=== PATIENT | male | born 1950 | race Caucasian/White ===

== ENCOUNTER 2016-11-16 07:28 | Outpatient (CLI) | payer MEDICARE ==
[~2016-11-16] VITALS: Ht 170.2 cm; Wt 95.9 kg
--- NOTE | ~2016-11-16 | HEMODYNAMI ---
PATIENT:KRISS HORN MEDICAL RECORD: [id number] : 50 LOCATION:[facility] ADMISSION DATE: 11/16/16 Generatedon:11/16/20169:45 Patient name: KRISS HORN Patient #: [id number] SSN: : 1950 Date of study: 11/16/2016 Page: Of Hemodynamic Procedure Report Patient Data Patient Demographics Procedure consent was obtained First Name: KRISS Gender: Male Last Name: KORY : 1950 Middle Initial: A Age: 66 year(s) Patient #: [id number] Race: Additional ID: [id number] Contact details [address]: [address] [place] [address] [facility] [place] [facility] Zip code: [address] Past Medical History Allergies Allergen Reaction Date Comments Reported Aspirin 04/25/2015 Aspirin 11/16/2016 Admission Admission Data Admission Date: 11/16/2016 Admission Time: 7:28 Height (in.): 67 BSA: 2.07 (m2) Height (cm.): 170.18 BMI: 33.05 (kg/m2) Weight (lbs.): 211 Weight (kg.): 95.71 Lab Results Lab Result Date: 11/16/2016 Lab Result Time: 0:00 Biochemistry Name Units Result Min Max Creatinine mg/dl 1 --(--*-)-- 0.6 1.3 CBC Name Units Result Min Max Hemoglobin g/dl 16.6 --(---*)-- 13.5 17.5 Procedure Procedure Types Cath Procedure Diagnostic Procedure LHC LHC w/Coronaries Miscellaneous Procedures Moderate Sedation up to 30 minutes Procedure Description Procedure Date Procedure Date: 11/16/2016 Procedure Start Time: 9:22 Procedure End Time: 9:45 Procedure Staff Name Function Champ Quintana MD Performing Physician Francisco Husain RN Nurse Bina Escalante RT Monitor Maura Macdonald RT Scrub Procedure Data Cath Procedure Fluoroscopy Diagnostic fluoroscopy Total fluoroscopy Time: 7.9 time: 7.9 min min Diagnostic fluoroscopy Total fluoroscopy dose: dose: 1339 mGy 1339 mGy Contrast Material Contrast Material Type Amount (ml) Isovue 300 61 Entry Location Entry Primary Successful Side Size Upsize Upsize Entry Closure Velasco ccessful Closure Location (Fr) 1 (Fr) 2 (Fr) Remarks Device Remarks Femoral Right 6 Fr Mechanical artery Short Compression Estimated blood loss: 10 ml Diagnostic catheters Device Type Used For End Catheter Placement Diagnostic Terumo 5Fr LV Angiography [place] 110cm catheter Diagnostic Terumo 5Fr Left Coronary [place] 110cm catheter Angiography Diagnostic Terumo 5Fr Right Coronary [place] 110cm catheter Angiography Procedure Complications No complications Procedure Medications Medication Administration Route Dosage Oxygen NC 2 l/min Heparin Flush Bag added to field 2 bags (1000units/500ml NS) 0.9% NaCl I.V. 100 ml/hr Radial Cocktail added to field 1 syringe (Verapomil 2mg/Nitro 400mcg/Heparin 1500units) Fentanyl I.V. 50 mcg Versed I.V. 1 mg Fentanyl I.V. 50 mcg Versed I.V. 1 mg Fentanyl I.V. 50 mcg Radial Cocktail I.A. 1 syringe (Verapomil 2mg/Nitro 400mcg/Heparin 1500units) Heparin Bolus I.V. 4000 units Hemodynamics Rest BSA: 2.07 (m2) HGB: 16.6 (g/dl) O2 Consumption: Estimated: 231.87 (ml/min) O2 Co nsumption indexed: Estimated:112.01 (ml/min/m) Heart Rate: 58 (bpm) Snapshots Pre Cath Intra NCS Post Cath Vital Signs Time Heart Resp SPO2 NIBP (mmHg) Rhythm Pain Sedation Rate (ipm) (%) Status Level (bpm) 9:05:15 58 18 95 132/78(108) NSR 0 (11) 10(A) , No pain 9:09:33 58 18 94 129/67(112) NSR 0 (11) 10(A) , No pain 9:14:23 56 17 96 141/86(99) NSR 0 (11) 10(A) , No pain 9:18:40 57 17 97 127/81(103) NSR 0 (11) 9(A) , No pain 9:22:53 57 18 94 113/79(97) NSR 0 (11) 9(A) , No pain 9:27:07 60 17 94 109/62(87) NSR 0 (11) 9(A) , No pain 9:31:19 56 19 94 109/63(83) NSR 0 (11) 9(A) , No pain 9:35:29 57 19 95 111/68(91) NSR 0 (11) 9(A) , No pain 9:39:41 56 18 95 100/63(77) NSR 0 (11) 9(A) , No pain 9:41:09 55 10 96 106/55(85) NSR 0 (11) 9(A) , No pain Medications Time Medication Route Dose Verified Delivered Reason Notes Effectiveness by by 9:13:18 Oxygen NC 2 l/min Francisco Singh Per physician Rodrigue Husain RN RN 9:13:27 Heparin Flush added 2 bags Francisco Sevillay used for Bag to Rodrigue Husain RN procedure (1000units/500ml field RN NS) 9:13:38 0.9% NaCl I.V. 100 Francisco Singh Per physician ml/hr Rodrigue Husain RN RN 9:13:46 Radial Cocktail added 1 Francisco Francisco used for (Verapomil to syringe Rodrigue Husain RN procedure 2mg/Nitro RN 400mcg/Heparin 1500units) 9:14:52 Fentanyl I.V. 50 mcg Francisco Francisco for sedation Rodrigue Husain RN RN 9:14:59 Versed I.V. 1 mg Francisco Francisco for sedation Rodrigue Husain RN RN 9:17:49 Fentanyl I.V. 50 mcg Francisco Francisco for sedation Rodrigue Husain RN RN 9:17:52 Versed I.V. 1 mg Francisco Francisco for sedation Rodrigue Husain RN RN 9:19:24 Fentanyl I.V. 50 mcg Francisco Francisco for sedation Rodrigue Husain RN RN 9:24:00 Radial Cocktail I.A. 1 Francisco Longrey for (Verapomil syringe Rodrigue grande 2mg/Nitro RN 400mcg/Heparin 1500units) 9:32:15 Heparin Bolus I.V. 4000 Francisco Francisco for units Rodrigue Husain RN anticoagulation window draper Log Time Note 8:40:56 Francisco Husain RN sent for patient. Start room use. 8:41:02 Time tracking: Regular hours 8:41:06 Plan of Care:Hemodynamics will remain stable., Cardiac rhythm will remain stable., Comfort level will be maintained., Respiratory function will remain adequate., Patient/ family verbilizes understanding of procedure., Procedure tolerated without complication., Recovers from procedure without complications.. 8:45:55 Patient Height : 170.18 cm 8:45:57 Patient Weight : 95.71 kg 8:58:02 Patient received from Pre/Post Procedure Room to CCL 2 Alert and oriented. Tansferred to table in Supine position. 8:58:03 Warm blankets applied, and caleb hugger turned on for patient comfort. 8:58:03 Correct patient and procedure confirmed by team. 8:58:04 Signed procedure consent form obtained from patient. 8:58:05 ECG and BP/O2 sat monitors applied to patient. 8:58:06 Full Disclosure recording started 9:04:09 Vital chart was started 9:08:21 Baseline sample Acquired. 9:08:38 Rhythm: sinus rhythm 9:08:46 H&P Date Dictated: 11/13/2016 Within 30 days and on chart., H&P Addendum completed by physician on day of procedure. (MUST COMPLETE FOR ALL OUTPATIENTS). 9:08:47 Pre-procedure instructions explained to patient. 9:08:47 Pre-op teaching completed and patient verbalized understanding. 9:08:48 Family in waiting room. 9:08:50 Patient NPO since Midnight. 9:08:57 Patient allergic to Aspirin 9:08:59 Is the patient allergic to Iodine/contrast media? No. 9:09:01 Is patient on blood thinner?Yes 9:09:08 ACC The patient was administered the following blood thiners within the last 24 hours: ACCPlavix 9:09:17 Patient diabetic? Yes. 9:09:26 If diabetic: On Metformin? No 9:09:33 Previous problem with sedation/anesthesia? No ? 9:09:34 Snore? Yes 9:09:35 Sleep apnea? No 9:09:36 Deviated septum? No 9:09:37 Opens mouth fully? Yes 9:09:37 Sticks out tongue? Yes 9:09:39 Airway obstruction? No ? 9:09:42 Dentures? Yes out 9:09:45 Pre procedure: right dorsailis pedis pulse 2+ Normal; easily identifiable; not easily obliterated 9:09:46 Modified Gustavo's test Ulnar < 7 seconds 9:09:48 Patient pain scale 0/10 ?. 9:09:52 IV patent on arrival in left hand with 0.9% NaCl at O. 9:10:09 Lab Result : Hemoglobin 16.6 g/dl 9:10:09 Lab Result : Creatinine 1 mg/dl 9:10:13 Lab results completed and on chart. 9:10:16 Right Radial & Right Groin area was prepped with chlora-prep and draped in sterile fashion 9:10:17 Alarms reviewed by R. N. 9:10:18 Sharps counted by scrub and verified by R.N. 9:10:22 Use device set Radial Dx 9:10:23 Acist Syringe opened to sterile field. 9:10:23 Medline Cath Pack opened to sterile field. 9:10:24 Bag Decanter opened to sterile field. 9:10:24 Terumo 6Fr Slender Glidesheath opened to sterile field. 9:10:25 St [place] 260cm J .035 wire opened to sterile field. 9:10:25 Acist Hand Control opened to sterile field. 9:10:26 Acist Manifold opened to sterile field. 9:10:26 Tegaderm 4 x 4 opened to sterile field. 9:10:27 MBrace Wrist Support opened to sterile field. 9:13:18 Oxygen 2 l/min NC was administered by Francisco Husain RN; Per physician; 9:13:27 Heparin Flush Bag (1000units/500ml NS) 2 bags added to field was administered by Francisco Husain RN; used for procedure; 9:13:38 0.9% NaCl 100 ml/hr I.V. was administered by Francisco Husain RN; Per physician; 9:13:46 Radial Cocktail (Verapomil 2mg/Nitro 400mcg/Heparin 1500units) 1 syringe added to field was administered by Francisco Husain RN; used for procedure; 9:14:27 Final Timeout: patient, procedure, and site verified with staff and physician. All members of the team are in agreement. 9:14:31 Right Radial site verified by team. 9:14:33 Physical assessment completed. ASA score P 2 - A patient with mild systemic disease as per Champ Quintana MD. 9:14:36 Sedation plan: IV Moderate Sedation Versed, Fentanyl 9:14:52 Fentanyl 50 mcg I.V. was administered by Francisco Husain RN; for sedation; 9:14:59 Versed 1 mg I.V. was administered by Francisco Husain RN; for sedation; 9:17:49 Fentanyl 50 mcg I.V. was administered by Francisco Husain RN; for sedation; 9:17:52 Versed 1 mg I.V. was administered by Francisco Husain RN; for sedation; 9:19:24 Fentanyl 50 mcg I.V. was administered by Francisco Husain RN; for sedation; 9:22:04 Procedure started. 9:22:20 Zero performed for pressure channel P1 9:22:24 Zero performed for pressure channel P1 9:22:58 Local anesthetic to right radial artery with Lidocaine 2% by Champ Quintana MD.INITIAL ACCESS ONLY 9:23:41 A 6 Fr Short sheath was inserted into the Right Femoral artery 9:24:00 Radial Cocktail (Verapomil 2mg/Nitro 400mcg/Heparin 1500units) 1 syringe I.A. was administered by Champ Quintana MD; for vasodilation; 9:24:11 A Diagnostic Terumo 5Fr [place] 110cm catheter was advanced over the wire and used for LV Angiography. 9:25:24 Angled glide wire advanced. 9:25:41 Terumo ANGLE 260cm glide wire opened to sterile field. 9:27:38 LV gram done using HOOVER 9:27:47 EF : 45 % 9:27:54 Injector settings: Ml/sec: 5, Volume: 15, 9:28:10 A Diagnostic Terumo 5Fr [place] 110cm catheter was advanced over the wire and used for Left Coronary Angiography. 9:29:35 A Diagnostic Terumo 5Fr [place] 110cm catheter was advanced over the wire and used for Right Coronary Angiography. 9:29:36 Catheter removed. 9:30:07 Merit BasixCompak Inflation Kit opened to sterile field. 9:30:07 [place] Sci Choice PT Extra Support J 300cm .014 gu opened to sterile field. 9:30:16 Cordis 6FR XBLAD 3.5 guide catheter opened to sterile field. 9:30:57 6 Fr XBLAD 3.5 guide catheter was inserted over the wire 9:32:15 Heparin Bolus 4000 units I.V. was administered by Francisco Husain RN; for anticoagulation; 9:32:22 Choice PT ES wire advanced. 9:34:31 Knutson Fielder XT J 300cm 0.014 guide wire opened to sterile field. 9:34:55 Wire removed. damaged. 9:35:02 Fielder wire advanced. 9:37:33 The [place] K94 Discoveries [place] 1.5 X 15 balloon was advanced and then removed because of failure to cross lesion 9:37:36 Balloon removed over the wire. 9:37:36 Wire removed. 9:37:38 Guide catheter removed. 9:38:39 Sheath removed intact; hemostasis achieved with Mechanical Compression to the Right Femoral artery. 9:38:41 Procedure ended.(Physican Out) 9:38:54 Fluoroscopy time 07.90 minutes. 9:38:59 Flurop Dose total: 1339 9:38:59 Fluoroscopy dose: 1339 mGy 9:39:05 Contrast amount:Isovue 300 61ml. 9:39:07 Sharps counted by scrub and verified by R.N. 9:39:09 TR band inflated with 10cc of air. 9:39:10 Insertion/operative site no bleeding no hematoma. 9:39:15 Post right radial artery:stable, clean and dry 9:40:40 Prelude SYNC Large TR Band opened to sterile field. 9:40:47 Post Procedure Pulses reassessed and unchanged 9:40:49 Post-procedure physical assessment completed. ASA score P 2 - A patient with mild systemic disease as per Champ Quintana MD. 9:40:52 Post procedure rhythm: unchanged. 9:40:54 Estimated blood loss: 10 ml 9:40:55 Post procedure instruction explained to patient.Patient verbalizes understanding. 9:40:55 Patient needs reinforcement of post procedure teaching. 9:42:10 Procedure type changed to Cath procedure, Diagnostic procedure, LHC, LHC w/Coronaries, Miscellaneous Procedures, Moderate Sedation up to 30 minutes 9:44:15 Procedure and supply charges have been captured, reviewed, submitted and are correct. 9:44:18 Procedure Complication : No complications 9:44:20 See physician's report for complete and final results. 9:44:58 Vital chart was stopped 9:45:00 Report given to Pre/Post Procedure Room. 9:45:02 Patient transfered to Pre/Post Procedure Room with Stretcher. 9:45:04 Procedure ended. 9:45:04 Full Disclosure recording stopped 9:45:07 End room use (Document Last) Intervention Summary Intervention Notes Time ActionType Lesion and Equipment Action# Pressure Duration Attributes Used 9:37:33 Discard [place] Balloon Sci [place] 1.5 X 15 balloon Device Usage Item Name Manufacture Quantity Catalog Number Hospital Part Current Mini mal Lot# / Charge Number Stock Stock Serial# Code Acist Acist 1 86024 712127 459812 [id number] 20 Syringe Medical Systems Inc Medline Cardinal 1 [id number] 831823 33737 817286 5 Cath Pack Health Bag Microtek 1 2002S 255422 91834 003456 5 Decanter Medical Inc. Terumo 6Fr Terumo 1 [id number] 930713 017149 989480 [address] St Tor[place] 1 726580 132415 022181 569693 30 260cm J .035 wire Acist Hand Acist 1 73652 397685 123518 572672 5 Control Medical Systems Inc Acist Acist 1 89350 537282 001636 289389 5 Manifold Medical Systems Inc Tegaderm 4 3M 1 1626W 238477 199536 588257 5 x 4 MBrace Advanced 1 140-0250-00 679802 51970 151549 5 Wrist Vascular Support Dynamics Diagnostic Terumo 1 32-9931 204949 586565 849655 5 Terumo 5Fr [place] 110cm catheter Terumo Terumo 1 [id number] 986635 306093 028919 5 ANGLE 260cm glide wire Merit Merit 1 [id number] 199938 875867 099692 15 BasixCompak Medical Inflation Kit [place] Sci [place] 1 [id number] 418493 020215 630894 5 Choice PT Scientific Extra Support J 300cm .014 gu Cordis 6FR Cardinal 1 [id number] 997477 723237 853313 10 XBLAD 3.5 Health guide catheter Knutson Knutson 1 [id number] 894191 285563 608138 5 Fielder XT Vascular J 300cm 0.014 guide wire [place] Sci [place] 1 [id number] 283615 422281 940939 1 [id number] Prosper[employer]. 1.5 X 15 balloon Prelude Unknown 1 0 0 SYNC Large TR Band Signature Audit [place] Stage Time Signature Unsigned Intra-Procedure 11/16/2016 Bina 9:45:18 AM Counts RT(R) Signatures Monitor : Bina Signature : Counts RT Date : Time : [place] [id number] [place] [id number]
[~2016-11-16 07:28] MED LIST: BETAPACE 80 MG80 MG PO; COZAAR50 MG PO; METOPROLOL TART50 MG PO; NORCO 7.5/325 T1 TA1 PO; PLAVIX75 MG PO; PROTONIX40 MG PO; VOLTAREN100 GM TOPICAL
[2016-11-16 08:01] VITALS: BP 159/85; Ht 170.2 cm; Wt 95.9 kg
[2016-11-16 08:23] LABS: BASOPHILS 0.5 % (0-2); EOSINOPHILS 4.2 % (0-7); HEMATOCRIT 48.6 % (42.0-54.0); HEMOGLOBIN 16.6 g/dL (13.5-17.5); IMMATURE GRANULOCYTES 0.2 % (0-5); MCH 31.4 pg (26.0-34.0); MCHC 34.2 g/dL (31.0-37.0); MONOCYTES 9.6 % (2-11); NEUTROPHILS 41.5 % (40-80); PLATELET COUNT 121 10x3/uL (130-400); RBC 5.28 10x6/uL (4.20-6.10); RDW 14.8 % (11.5-14.5)
[2016-11-16 08:30] LABS: CALC OSMOLALITY 280 mosm/kg (275-300); CALCIUM 9.9 mg/dL (8.5-10.1); CARBON DIOXIDE 26.2 mmol/L (21.0-32.0); CHLORIDE - SERUM 106 mmol/L (98-107); GLUCOSE 130 mg/dL (74-106); POTASSIUM - SERUM 4.6 mmol/L (3.5-5.1); SODIUM 139 mmol/L (136-145); UREA NITROGEN 16 mg/dL (7-18); eGFR NON AFRICAN AMERICAN 79 mL/min (90-120)
--- NOTE | 2016-11-16 10:15 | NUR ---
2L NC, NO RESP DISTRESS NOTED. RIGHT WRIST TR BAND IN PLACE, NO BLEEDING OR HEMATOMA NOTED. SB @ 56 ON MONITOR. NO C/O CHEST PAIN OR NAUSEA. VSS.
--- NOTE | 2016-11-16 10:45 | NUR ---
SANDWICH TRAY AND DRINK GIVEN. NO C/O NAUSEA. 2L NC, NO RESP DISTRESSS NOTED. RIGHT WRIST TR BAND IN PLACE, NO BLEEDING OR HEMATOMA NOTED. VSS. NO C/O CHEST PAIN. FAMILY AT BEDSIDE, CALL LIGHT WITHIN REACH.
--- NOTE | 2016-11-16 11:00 | NUR ---
ROOM AIR, NO RESP DISTRESS NOTED. RIGHT WRIST TR BAND IN PLACE, NO BLEEDING OR HEMATOMA NOTED. VSS. NO C/O NAUSEA OR CHEST PAIN. WILL CONTINUE TO MONITOR.
--- NOTE | 2016-11-16 11:30 | NUR ---
ROOM AIR, NO RESP DISTRESS NOTED. RIGHT WRIST TR BAND IN PLACE, NO BLEEDING OR HEMATOMA NOTED. NO C/O AT THIS TIME. VSS.
--- NOTE | 2016-11-16 12:30 | NUR ---
3CC OF AIR REMOVED FROM TR BAND, NO BLEEDING OR HEMATOMA NOTED.
--- NOTE | 2016-11-16 12:48 | NUR ---
3CC OF AIR REMOVED FROM TR BAND, NO BLEEDING OR HEMATOMA NOTED.
--- NOTE | 2016-11-16 13:00 | NUR ---
3CC OF AIR REMOVED FROM TR BAND. NO BLEEDING NOTED. VSS.
--- NOTE | 2016-11-16 13:14 | NUR ---
LEFT HAND PIV D/C'D WITH CATHETER INTACT, BAND AID TO SITE. UP TO BEDSIDE TO GET DRESSED.
--- NOTE | 2016-11-16 13:25 | NUR ---
DISCHARGE INSTRUCTIONS GIVEN, VERBALIZED UNDERSTANDING. REMAINING AIR REMOVED FROM TR BAND, BANDAGE TO SITE.
--- NOTE | 2016-11-16 13:34 | NUR ---
TAKEN OUT VIA WHEELCHAIR BY CATH LINUX KERNEL DEVELOPER. LEFT FACILITY WITH AND ALL PERSONAL BELONGINGS.
--- NOTE | 2016-11-17 12:31 | OP ---
PATIENT NAME: KRISS HORN MEDICAL RECORD: [id number] :50 LOCATION:[facility] ADMISSION DATE: SURGEON: LUCAS ROMERO MD DATE OF OPERATION: 11/16/2016 PROCEDURES: 1. Left heart catheterization. 2. Selective coronary angiography. 3. Left ventriculogram. INDICATION: Angina and coronary artery disease. PROCEDURE IN DETAIL: After informed consent was obtained and after detailed explanation of risks, benefits as well as alternative therapies, the patient elected to proceed with angiogram and angioplasty. The right radial area was prepped and draped in normal sterile fashion. The right radial artery was cannulated via modified Seldinger technique with placement of 6-Polish sheath. All catheters exchanged through this sheath. FINDINGS: Left ventriculogram was performed in standard 30-degree HOOVER view, reveals good cardiac wall motion throughout all segments. Overall ejection fraction estimated at 55%. SELECTIVE CORONARY ANGIOGRAPHY: 1. Left main showed no significant angiographic disease. 2. Left anterior descending has previously placed stents in the distal aspect. This is a Graftmaster stent. There is significant restenosis of the stent. We have attempted to get through this in the past without any success. 3. Left circumflex has moderate irregularities, but no flow-limiting stenosis. 4. Right coronary has previously placed stents. These are widely patent with no significant restenosis. No disease elsewise throughout the RCA or its branches. Attempted PTCA stent of the LAD. Once again, tried to wire through the Graftmaster stent with no success. OVERALL IMPRESSION: Significant restenosis of the very distal LAD at the site of the previously placed Graftmaster stent. There is patency of this, but no wire would go in the true lumen channel. Continue medical management of the coronary artery disease and cardiac risk factors. TRANSINT:[id number] Voice Confirmation ID: [id number] DOCUMENT ID: [id number] LUCAS ROMERO MD at 1231 CC: [id number] DICTATION DATE: 11/16/16 0940 GENERAL UTILITY MACHINE OPERATOR: 11/16/16 1935 DEP CLI 11/16/16 [facility] [address] [place] [address]
== END 2016-11-16 13:34 | disposition home or self-care (01) ==
LOC: D.CATH 07:28
PROVIDERS: Internal Medicine Interventional Cardiology
DX: I25.119 Atherosclerotic heart disease of native coronary artery with unspecified angina pectoris (principal); T82.855A Stenosis of coronary artery stent, initial encounter; Z01.812 Encounter for preprocedural laboratory examination